=== PATIENT | male | born 1965 | race Caucasian/White ===

== ENCOUNTER 2017-03-18 10:44 | Inpatient (IN) | payer MEDICAID ==
[~2017-03-18] VITALS: Ht 185.4 cm; Wt 142.8 kg
[2017-03-18] MEDS ORDERED: HYDR2PLA2 PO (10:56)
[2017-03-18] MEDS ORDERED: PROM25 PO (10:56)
[2017-03-18] MEDS ORDERED: CIPR-278 PO (10:56)
[2017-03-18] MEDS ORDERED: HYDR-3965 PO (10:56)
[2017-03-18 13:15] LABS: HEMATOCRIT 26.2 % (41-53); HEMOGLOBIN 8.3 g/dL (13.5-17.5); MEAN CORPUSCULAR HEMOGLOBIN 22.9 pg (26.0-34.0); MEAN CORPUSCULAR HGB CONC 31.7 G/dL (31.0-37.0); MEAN CORPUSCULAR VOLUME 72 fL (80-100); PLATELET COUNT (AUTO) 631 K/uL (150-450); RED BLOOD CELL COUNT(AUTO) 3.63 MIL/uL (4.50-5.90); RED CELL DISTRIBUTION WIDTH 18.3 % (11.5-14.5); WHITE BLOOD COUNT (AUTO) 21.6 K/uL (4.5-11.0)
[2017-03-18 13:18] LABS: APPEARANCE,URINE TURBID (CLEAR); GLUCOSE, URINE (UA) NEGATIVE (NEGATIVE); KETONES,URINE TRACE mg/dL (NEGATIVE); LEUKOCYTE ESTERASE ,URINE TRACE (NEGATIVE); OCCULT BLOOD,URINE NEGATIVE (NEGATIVE); PROTEIN,URINE SEE CONFIRM (NEGATIVE)
[2017-03-18 13:23] LABS: ADD UA MICROSCOPIC YES
[2017-03-18 13:27] LABS: ALBUMIN 1.6 g/dL (3.4-5.0); BILIRUBIN,TOTAL 0.4 mg/dL (0.1-1.0); CALCIUM, TOTAL 8.1 mg/dL (8.8-10.5); CREATININE 1.48 mg/dL (0.60-1.30); TOTAL PROTEIN, SERUM 6.4 g/dL (6.4-8.2)
[2017-03-18 13:28] LABS: SULFOSALICYLIC ACID,URINE 1+ (Negative)
[2017-03-18 13:30] LABS: COARSE GRANULAR CASTS,URINE 0-2 /LPF (None Seen); RBC,URINE 0-2 /HPF (0-2); SQUAMOUS EPITHELIAL CELL,UR Few /LPF (None Seen)
[2017-03-18 13:32] LABS: BAND NEUTROPHILS % (MANUAL) 19 % (1-5); EOSINOPHILS % (MANUAL) 2 % (1-6); LYMPHOCYTES % (MANUAL) 9 % (22-44); TOTAL CELLS COUNTED 100
[2017-03-18 13:33] LABS: INR 1.4 (0.9-1.1); PROTHROMBIN TIME 14.4 SEC (9.4-11.6); RBC MORPHOLOGY COMMENT ABNORMAL RBC MORPH
[2017-03-18] MEDS ORDERED: ONDANSETRON HCL 4 MG/2 ML VIAL IVP ONE (13:45)
[2017-03-18] MEDS ORDERED: CefTRIAXone SODIUM 2 GM in DEXTROSE 5%-WATER 50 ML IV ONE (15:00)
[2017-03-18] MEDS ORDERED: ACETAMINOPHEN 325 MG TABLET PO PRN (16:00)
[2017-03-18] MEDS ORDERED: MAGNESIUM HYDROXIDE SUSPENSION 30 ML UDCUP PO PRN (16:00)
[2017-03-18] MEDS ORDERED: ZOLPIDEM TARTRATE 5 MG TABLET PO PRN (16:00)
[2017-03-18] MEDS ORDERED: BISACODYL 10 MG RECTAL RECTAL SUPPOSITORY PR PRN (16:00)
[2017-03-18] MEDS ORDERED: CefTRIAXone 1 GM/DEXTROSE 50 ML IV ONE ×2 (16:04→16:05)
[2017-03-18 16:25] LABS: LACTIC ACID 2.3 mmol/L (0.4-2.0)
[2017-03-18 16:37] LABS: APPEARANCE,UNSPUN,BODY FLUID TURBID (CLEAR); COLOR,BODY FLUID YELLOW (LT YELLOW)
[2017-03-18] MEDS ORDERED: MORPHINE SULFATE 4 MG/ML SYRINGE IVP ONE (17:00)
[2017-03-18] MEDS: CIPROFLOXACIN 400 MG/D5% WATER 200 ML IV SCH (17:13)
[2017-03-18 17:15] LABS: REFLEX LACTIC ACID? YES YES
[2017-03-18 17:26] LABS: PH, BODY FLUID 7
[2017-03-18 20:18] VITALS: BP 122/57
[2017-03-18] MEDS: DOCUSATE SODIUM 100 MG CAPSULE PO SCH (21:04)
[2017-03-18] MEDS: ONDANSETRON HCL 4 MG/2 ML VIAL IVP PRN (21:04)
[2017-03-18] MEDS: HEPARIN SODIUM,PORCINE 5,000 UNITS/ML VIAL SQ SCH (21:04)
[2017-03-18 23:21] VITALS: BP 121/57
[2017-03-18] MEDS ORDERED: PNEUMOCOCCAL VACCINE POLYVALENT 0.5 ML VIAL [PPSV23] IM ONE (23:45)
[2017-03-19] VITALS (11 sets, daily range): BP systolic 101–132; BP diastolic 54–70
[2017-03-19] MEDS: SODIUM CHLORIDE 0.9% 1,000 ML IV SCH ×2 (00:18→16:39)
[2017-03-19] MEDS: ONDANSETRON HCL 4 MG/2 ML VIAL IVP PRN ×2 (04:31→16:39)
[2017-03-19] MEDS: CIPROFLOXACIN 400 MG/D5% WATER 200 ML IV SCH ×2 (04:31→16:37)
[2017-03-19 06:41] LABS: EOSINOPHILS # (AUTO) 0.07 K/uL (0.00-0.70); EOSINOPHILS % (AUTO) 0.38 % (1.0-6.0); HEMATOCRIT 21.3 % (41-53); LYMPHOCYTES # (AUTO) 1.3 K/uL (1.0-4.8); LYMPHOCYTES % (AUTO) 7.3 % (22.0-44.0); MEAN CORPUSCULAR HEMOGLOBIN 23.5 pg (26.0-34.0); MEAN CORPUSCULAR HGB CONC 32.6 G/dL (31.0-37.0); MEAN CORPUSCULAR VOLUME 72 fL (80-100); MONOCYTES # (AUTO) 1.2 K/uL (0.1-1.0); MONOCYTES % (AUTO) 6.9 % (2.0-9.0); PLATELET COUNT (AUTO) 562 K/uL (150-450); RED BLOOD CELL COUNT(AUTO) 2.96 MIL/uL (4.50-5.90); RED CELL DISTRIBUTION WIDTH 18.5 % (11.5-14.5); WHITE BLOOD COUNT (AUTO) 17.5 K/uL (4.5-11.0)
[2017-03-19 06:58] LABS: ANION GAP 11 mmol/L (8-16); CALCIUM, TOTAL 7.5 mg/dL (8.8-10.5); CARBON DIOXIDE 26 mmol/L (22-29); CHLORIDE 89 mmol/L (98-107); CREATININE 1.14 mg/dL (0.60-1.30); GLOMERULAR FILTR. RATE CALC > 60 mL/min (>60); POTASSIUM 3.6 mmol/L (3.5-5.1); SODIUM SERUM 126 mmol/L (136-145); UREA NITROGEN, BLOOD 31 mg/dL (7-18)
[2017-03-19 07:02] LABS: NEUTROPHILS % (AUTO) 85.3 % (40.0-70.0)
[2017-03-19] MEDS: DOCUSATE SODIUM 100 MG CAPSULE PO SCH ×2 (08:32→21:00)
[2017-03-19] MEDS: PANTOPRAZOLE SODIUM 40 MG DR TABLET PO SCH (08:32)
[2017-03-19] MEDS: HEPARIN SODIUM,PORCINE 5,000 UNITS/ML VIAL SQ SCH ×2 (08:32→21:01)
[2017-03-19] MEDS ORDERED: METOCLOPRAMIDE HCL 5 MG/ML 2 ML VIAL IVP PRN (09:45)
[2017-03-19] MEDS ORDERED: SODIUM CHLORIDE 0.9% 500 ML IV ONE (13:35)
[2017-03-19] MEDS: MORPHINE SULFATE 2 MG/ML SYRINGE IVP PRN ×2 (13:50→21:01)
[2017-03-19 19:22] LABS: HEMATOCRIT 22.5 % (41-53); HEMOGLOBIN 7.2 g/dL (13.5-17.5); MEAN CORPUSCULAR HEMOGLOBIN 23.1 pg (26.0-34.0); MEAN CORPUSCULAR VOLUME 72 fL (80-100); PLATELET COUNT (AUTO) 557 K/uL (150-450); RED BLOOD CELL COUNT(AUTO) 3.12 MIL/uL (4.50-5.90); RED CELL DISTRIBUTION WIDTH 18.9 % (11.5-14.5); WHITE BLOOD COUNT (AUTO) 16.9 K/uL (4.5-11.0)
[2017-03-19] MEDS ORDERED: MAGNESIUM SULFATE 2 GM, MVI, ADULT NO.1 WITH VIT K 10 ML, THIAMINE HCL 100 MG, FOLIC AC... IV ONE ×5 (19:30)
[2017-03-19 20:16] LABS: BAND NEUTROPHILS % (MANUAL) 4 % (1-5); EOSINOPHILS % (MANUAL) 1 % (1-6); LYMPHOCYTES % (MANUAL) 7 % (22-44); RBC MORPHOLOGY COMMENT ABNORMAL R; TOTAL CELLS COUNTED 100
[2017-03-20 00:35] VITALS: BP 112/72
[2017-03-20] MEDS: CIPROFLOXACIN 400 MG/D5% WATER 200 ML IV SCH ×2 (03:54→17:04)
[2017-03-20 05:38] LABS: HEMATOCRIT 21.3 % (41-53); HEMOGLOBIN 7.1 g/dL (13.5-17.5); MEAN CORPUSCULAR HEMOGLOBIN 23.9 pg (26.0-34.0); MEAN CORPUSCULAR HGB CONC 33.1 G/dL (31.0-37.0); MEAN CORPUSCULAR VOLUME 72 fL (80-100); PLATELET COUNT (AUTO) 591 K/uL (150-450); RED BLOOD CELL COUNT(AUTO) 2.95 MIL/uL (4.50-5.90); RED CELL DISTRIBUTION WIDTH 18.8 % (11.5-14.5); WHITE BLOOD COUNT (AUTO) 21.1 K/uL (4.5-11.0)
[2017-03-20 06:00] LABS: ANION GAP 8 mmol/L (8-16); CALCIUM, TOTAL 7.5 mg/dL (8.8-10.5); CARBON DIOXIDE 26 mmol/L (22-29); CHLORIDE 89 mmol/L (98-107); CREATININE 1.11 mg/dL (0.60-1.30); GLOMERULAR FILTR. RATE CALC > 60 mL/min (>60); UREA NITROGEN, BLOOD 20 mg/dL (7-18)
[2017-03-20] MEDS ORDERED: LIDOCAINE HCL/PF 1% 30 ML VIAL ONE (06:51)
[2017-03-20] MEDS ORDERED: HEPARIN SODIUM 1000 UNITS/NS 500 ML ONE ×2 (06:51→06:58)
[2017-03-20] MEDS ORDERED: FentaNYL CITRATE-PF 100 MCG/2 ML VIAL ONE (06:58)
[2017-03-20] MEDS ORDERED: MIDAZOLAM HCL 2 MG/2 ML VIAL ONE (06:58)
[2017-03-20] MEDS ORDERED: CeFAZolin 1 GM/DEXTROSE 50 ML IV ONE ×2 (07:00→07:33)
[2017-03-20 07:02] LABS: SODIUM SERUM 123 mmol/L (136-145)
[2017-03-20] MEDS: SODIUM CHLORIDE 0.9% 1,000 ML IV SCH (07:38)
[2017-03-20] MEDS ORDERED: SODIUM CHLORIDE 0.9% 1,000 ML IV SCH (07:45)
[2017-03-20] MEDS ORDERED: MIDAZOLAM HCL 2 MG/2 ML VIAL IVP ONE (07:48)
[2017-03-20] MEDS ORDERED: FentaNYL CITRATE-PF 100 MCG/2 ML VIAL IVP ONE (07:48)
[2017-03-20] MEDS ORDERED: ALBUMIN HUMAN 25%-50GM/200ML 200 ML IV ONE (08:30)
[2017-03-20] MEDS: HEPARIN SODIUM,PORCINE 5,000 UNITS/ML VIAL SQ SCH ×2 (09:50→21:02)
[2017-03-20] MEDS: PANTOPRAZOLE SODIUM 40 MG DR TABLET PO SCH (09:51)
[2017-03-20] MEDS: DOCUSATE SODIUM 100 MG CAPSULE PO SCH ×2 (09:51→21:01)
[2017-03-20 10:03] LABS: BAND NEUTROPHILS % (MANUAL) 18 % (1-5); LYMPHOCYTES % (MANUAL) 9 % (22-44); RBC MORPHOLOGY COMMENT ABNORMAL RBC MORPH; TOTAL CELLS COUNTED 100
[2017-03-20 10:11] VITALS: BP 130/73
[2017-03-20] MEDS: HYDROCODONE/ACETAMINOPHEN 5-325 MG TABLET PO PRN (13:00)
[2017-03-20] MEDS ORDERED: HYDR2 PO (13:22)
[2017-03-20 14:57] LABS: ANION GAP 9 mmol/L (8-16); CALCIUM, TOTAL 7.4 mg/dL (8.8-10.5); CARBON DIOXIDE 26 mmol/L (22-29); CHLORIDE 89 mmol/L (98-107); CREATININE 1.03 mg/dL (0.60-1.30); GLOMERULAR FILTR. RATE CALC > 60 mL/min (>60); POTASSIUM 3.8 mmol/L (3.5-5.1); UREA NITROGEN, BLOOD 18 mg/dL (7-18)
[2017-03-20 15:24] LABS: THYROID STIMULATING HORMONE 2.13 uIU/mL (0.36-3.74)
[2017-03-20 15:41] LABS: SODIUM SERUM 124 mmol/L (136-145)
[2017-03-20 16:29] VITALS: BP 110/59
[2017-03-20 20:00] VITALS: BP 112/61
[2017-03-20] MEDS ORDERED: CEFEPIME HCL 2 GM in DEXTROSE 5%-WATER 50 ML IV SCH (20:00)
[2017-03-20] MEDS ORDERED: PIPERACILLIN/TAZO 3.375 GM/D5W 50 ML IV SCH (20:00)
[2017-03-20 23:07] VITALS: BP 107/53
[2017-03-21] VITALS (20 sets, daily range): BP systolic 92–130; BP diastolic 44–76
[2017-03-21] MEDS: PIPERACILLIN/TAZO 3.375 GM/D5W 50 ML IV SCH ×4 (04:05→19:56)
[2017-03-21] MEDS: CIPROFLOXACIN 400 MG/D5% WATER 200 ML IV SCH ×2 (05:01→17:08)
[2017-03-21 06:25] LABS: EOSINOPHILS % (AUTO) 1.2 % (1.0-6.0); HEMATOCRIT 21.1 % (41-53); LYMPHOCYTES # (AUTO) 1.6 K/uL (1.0-4.8); LYMPHOCYTES % (AUTO) 7.9 % (22.0-44.0); MEAN CORPUSCULAR HEMOGLOBIN 23.7 pg (26.0-34.0); MEAN CORPUSCULAR HGB CONC 32.7 G/dL (31.0-37.0); MEAN CORPUSCULAR VOLUME 72 fL (80-100); MONOCYTES # (AUTO) 1.5 K/uL (0.1-1.0); MONOCYTES % (AUTO) 7.3 % (2.0-9.0); NEUTROPHILS # (AUTO) 16.7 K/uL (1.8-7.7); NEUTROPHILS % (AUTO) 83.6 % (40.0-70.0); PLATELET COUNT (AUTO) 562 K/uL (150-450); RED BLOOD CELL COUNT(AUTO) 2.92 MIL/uL (4.50-5.90); RED CELL DISTRIBUTION WIDTH 19.2 % (11.5-14.5); WHITE BLOOD COUNT (AUTO) 19.9 K/uL (4.5-11.0)
[2017-03-21 06:59] LABS: ANION GAP 10 mmol/L (8-16); CALCIUM, TOTAL 7.3 mg/dL (8.8-10.5); CARBON DIOXIDE 26 mmol/L (22-29); CHLORIDE 90 mmol/L (98-107); CREATININE 0.99 mg/dL (0.60-1.30); GLOMERULAR FILTR. RATE CALC > 60 mL/min (>60); POTASSIUM 3.5 mmol/L (3.5-5.1); SODIUM SERUM 126 mmol/L (136-145); UREA NITROGEN, BLOOD 16 mg/dL (7-18)
[2017-03-21 07:55] LABS: HEMOGLOBIN 6.9 g/dL (13.5-17.5)
[2017-03-21] MEDS ORDERED: BARIUM SULFATE 0.1% SUSPENSION 450 ML BOTTLE ONE (07:56)
[2017-03-21] MEDS: SODIUM CHLORIDE 0.9% 1,000 ML IV SCH (08:56)
[2017-03-21] MEDS: DOCUSATE SODIUM 100 MG CAPSULE PO SCH ×2 (08:56→19:57)
[2017-03-21] MEDS: HEPARIN SODIUM,PORCINE 5,000 UNITS/ML VIAL SQ SCH ×2 (08:57→19:56)
[2017-03-21] MEDS ORDERED: EPOETIN ALFA 10,000 UNITS/ML 2 ML VIAL SQ SCH (09:00)
[2017-03-21] MEDS ORDERED: IOVERSOL 350 MG/ML 100 ML VIAL ONE (10:38)
[2017-03-21] MEDS ORDERED: SODIUM CHLORIDE 0.9% 100 ML ONE (10:38)
[2017-03-21] MEDS ORDERED: IOVERSOL 350 MG/ML 150 ML VIAL ONE (10:40)
[2017-03-21] MEDS ORDERED: SODIUM CHLORIDE 0.9% 250 ML IV ONE (11:33)
[2017-03-21] MEDS: PANTOPRAZOLE SODIUM 40 MG DR TABLET PO SCH (13:58)
[2017-03-21] MEDS ORDERED: MORPHINE SULFATE 2 MG/ML SYRINGE IVP PRN (14:00)
[2017-03-21] MEDS ORDERED: FUROSEMIDE 20 MG/2 ML VIAL IVP ONE (15:45)
[2017-03-21 18:53] LABS: HEMATOCRIT 25.5 % (41-53); HEMOGLOBIN 8.3 g/dL (13.5-17.5); MEAN CORPUSCULAR HEMOGLOBIN 24.4 pg (26.0-34.0); MEAN CORPUSCULAR HGB CONC 32.6 G/dL (31.0-37.0); MEAN CORPUSCULAR VOLUME 75 fL (80-100); PLATELET COUNT (AUTO) 569 K/uL (150-450); RED BLOOD CELL COUNT(AUTO) 3.42 MIL/uL (4.50-5.90); RED CELL DISTRIBUTION WIDTH 20.6 % (11.5-14.5); WHITE BLOOD COUNT (AUTO) 23.7 K/uL (4.5-11.0)
[2017-03-21] MEDS ORDERED: FUROSEMIDE 20 MG TABLET PO ONE (19:15)
[2017-03-21 19:45] LABS: BAND NEUTROPHILS % (MANUAL) 20 % (1-5); LYMPHOCYTES % (MANUAL) 4 % (22-44); METAMYELOCYTES % 2 % (0-0); MYELOCYTES % 3 % (0-0); TOTAL CELLS COUNTED 100
[2017-03-21 19:46] LABS: RBC MORPHOLOGY COMMENT ABNORMAL R
[2017-03-21] MEDS ORDERED: OXYGEN THERAPY IH SCH (20:00)
[2017-03-22] MEDS: PIPERACILLIN/TAZO 3.375 GM/D5W 50 ML IV SCH ×4 (03:29→20:15)
[2017-03-22] MEDS: CIPROFLOXACIN 400 MG/D5% WATER 200 ML IV SCH ×2 (04:34→15:00)
[2017-03-22] MEDS: SODIUM CHLORIDE 0.9% 1,000 ML IV SCH (04:45)
[2017-03-22 05:10] VITALS: BP 115/68
[2017-03-22 07:49] VITALS: BP 109/54
[2017-03-22] MEDS: PANTOPRAZOLE SODIUM 40 MG DR TABLET PO SCH (08:00)
[2017-03-22] MEDS: FUROSEMIDE 20 MG TABLET PO SCH (08:00)
[2017-03-22] MEDS: HEPARIN SODIUM,PORCINE 5,000 UNITS/ML VIAL SQ SCH ×2 (08:00→20:15)
[2017-03-22] MEDS: DOCUSATE SODIUM 100 MG CAPSULE PO SCH ×2 (09:00→20:22)
[2017-03-22] MEDS: WATER FOR INJECTION STERILE IV SCH (09:52)
[2017-03-22] MEDS: SODIUM CHLORIDE IV SCH (09:52)
[2017-03-22 11:35] VITALS: BP 115/58
[2017-03-22 15:22] VITALS: BP 107/57
[2017-03-22 19:25] VITALS: BP 124/67
[2017-03-22] MEDS: HYDROCODONE/ACETAMINOPHEN 5-325 MG TABLET PO PRN (20:18)
[2017-03-22 23:18] VITALS: BP 101/51
[2017-03-23] MEDS: HYDROCODONE/ACETAMINOPHEN 5-325 MG TABLET PO PRN (04:28)
[2017-03-23] MEDS: PIPERACILLIN/TAZO 3.375 GM/D5W 50 ML IV SCH ×2 (04:28→08:12)
[2017-03-23] MEDS: SODIUM CHLORIDE IV SCH (04:29)
[2017-03-23] MEDS: WATER FOR INJECTION STERILE IV SCH (04:29)
[2017-03-23] MEDS: CIPROFLOXACIN 400 MG/D5% WATER 200 ML IV SCH (04:29)
[2017-03-23 04:31] VITALS: BP 109/55
[2017-03-23 07:59] VITALS: BP 129/80
[2017-03-23] MEDS: HEPARIN SODIUM,PORCINE 5,000 UNITS/ML VIAL SQ SCH (08:12)
[2017-03-23] MEDS: FUROSEMIDE 20 MG TABLET PO SCH (08:12)
[2017-03-23] MEDS: PANTOPRAZOLE SODIUM 40 MG DR TABLET PO SCH (08:12)
[2017-03-23] MEDS: DOCUSATE SODIUM 100 MG CAPSULE PO SCH (08:13)
[2017-03-23 08:47] LABS: SODIUM SERUM 126 mmol/L (136-145)
[2017-03-23 10:06] LABS: BASOPHILS % (AUTO) 0.1 % (0.0-2.0); EOSINOPHILS % (AUTO) 0.7 % (1.0-6.0); HEMATOCRIT 25.5 % (41-53); HEMOGLOBIN 8.3 g/dL (13.5-17.5); LYMPHOCYTES # (AUTO) 1.7 K/uL (1.0-4.8); LYMPHOCYTES % (AUTO) 7.8 % (22.0-44.0); MEAN CORPUSCULAR HEMOGLOBIN 24.1 pg (26.0-34.0); MEAN CORPUSCULAR HGB CONC 32.3 G/dL (31.0-37.0); MEAN CORPUSCULAR VOLUME 74 fL (80-100); MONOCYTES # (AUTO) 0.7 K/uL (0.1-1.0); NEUTROPHILS # (AUTO) 19.8 K/uL (1.8-7.7); PLATELET COUNT (AUTO) 528 K/uL (150-450); RED BLOOD CELL COUNT(AUTO) 3.43 MIL/uL (4.50-5.90); RED CELL DISTRIBUTION WIDTH 20.8 % (11.5-14.5); WHITE BLOOD COUNT (AUTO) 22.4 K/uL (4.5-11.0)
[2017-03-23 10:07] LABS: NEUTROPHILS % (AUTO) 88.4 % (40.0-70.0)
[2017-03-23 10:10] LABS: ANION GAP 11 mmol/L (8-16); CALCIUM, TOTAL 7.2 mg/dL (8.8-10.5); CARBON DIOXIDE 23 mmol/L (22-29); CHLORIDE 95 mmol/L (98-107); CREATININE 0.92 mg/dL (0.60-1.30); GLOMERULAR FILTR. RATE CALC > 60 mL/min (>60); POTASSIUM 3.5 mmol/L (3.5-5.1); UREA NITROGEN, BLOOD 9 mg/dL (7-18)
[2017-03-23] MEDS ORDERED: LEVO250 PO (10:20)
[2017-03-23] MEDS ORDERED: METR500 PO (10:21)
[2017-03-23 10:35] LABS: RBC MORPHOLOGY COMMENT ABNORMAL RBC MORPH
[2017-03-23 11:59] VITALS: BP 157/86
[2017-03-23 17:46] LABS: PROMYELOCYTES % 0 (0-0)
[2017-03-23 17:47] LABS: MYELOCYTES % 2 % (0-0)
== END 2017-03-23 12:00 | disposition home or self-care (01) | DRG 710 ==
LOC: EMS 10:50 → 6N 18:59
PROVIDERS: ADMIT Internal Medicine; ATTEND Internal Medicine
PROC: 0W9G3ZZ Drainage of Peritoneal Cavity, Percutaneous Approach (ICD-10-PCS; principal; 2017-03-18)
PROC: 0WHG33Z Insertion of Infusion Device into Peritoneal Cavity, Percutaneous Approach (ICD-10-PCS; 2017-03-20)
PROC: 30233N1 Transfusion of Nonautologous Red Blood Cells into Peripheral Vein, Percutaneous Approach (ICD-10-PCS; 2017-03-21)
DX: A41.59 Other Gram-negative sepsis (principal); N17.0 Acute kidney failure with tubular necrosis; E43 Unspecified severe protein-calorie malnutrition; R18.0 Malignant ascites; K55.9 Vascular disorder of intestine, unspecified; K65.9 Peritonitis, unspecified; C20 Malignant neoplasm of rectum; N17.9 Acute kidney failure, unspecified; E87.1 Hypo-osmolality and hyponatremia; N18.9 Chronic kidney disease, unspecified; F29 Unspecified psychosis not due to a substance or known physiological condition; K59.00 Constipation, unspecified; B96.6 Bacteroides fragilis [B. fragilis] as the cause of diseases classified elsewhere; Z68.41 Body mass index [BMI] 40.0-44.9, adult; Z79.899 Other long term (current) drug therapy; Z79.891 Long term (current) use of opiate analgesic; Z87.891 Personal history of nicotine dependence
CPT/HCPCS: 36245; 49083; 74177; 76937; 76942; 77002; 82533; 83605; 83615; 83930; 83935; 83986; 84133; 84295; 84300; 84443; 84560; 86850; 86900; 86901; 86920; 87040; 87070; 87086; 87205; 88108; 88341; 88342; 89051; 93005; 96365; 96366; 96375; 99285; J0690; J0692; J0696; J0744; J0885; J1644; J2250; J2270; J2405; J2543; J2765; J3010; J3411; J3475; J3490; J7030; J7040; J7050; J7060; J7131; P9016; P9046